=== PATIENT | female | born 1965 | race Hispanic/Latino ===

== ENCOUNTER 2017-08-16 19:17 | Inpatient (IN) | payer OTHER ==
[2017-08-16 20:52] LABS: Bilirubin Negative (Negative); Blood, Urine Small (Negative); Glucose, Urine (Dipstick) 100 mg/dL (Negative); Ketone, Urine Negative (Negative); Nitrite Positive (Negative); Protein, Urine (Dipstick) 30 mg/dL (Neg-Trace); Urobilinogen 0.2 mg/dL (0.2-1.0)
[2017-08-16 20:54] LABS: Bacteria/HPF Rare-Few HPF (None Seen); Hyaline Casts/LPF 0-3 HYALINE CAST LPF (0-3 Hyaline); Squamous Epithelial 0-3 HPF (0-3)
[2017-08-16 21:11] LABS: Anion Gap 12 mmol/L (-14-95); T. Carbon Dioxide 21.9 mmol/L (1.0-85.0); pH (Venous) 7.392 (7.35-7.45); vO2 Saturation-calc 93.7 % (0.0-100.0)
[2017-08-16 21:29] LABS: PTT 35.8 SEC (22.9-36.1); Prothrombin Time 13.6 SEC (12.0-14.7)
[2017-08-16 21:36] LABS: Lactic Acid - Sepsis 1.8 mmol/L (0.5-2.2)
[2017-08-16 21:45] LABS: Troponin I Less than 0.010 ng/mL (< 0.028)
[2017-08-16] MEDS ORDERED: Nitroglycerin 0.4 MG TAB (25 Tab Bottle) SL PRN (21:56)
[2017-08-16] MEDS ORDERED: cloNIDine 0.1 MG TAB PO PRN (21:56)
[2017-08-16] MEDS ORDERED: traMADol HCl 50 MG TAB PO PRN (21:56)
[2017-08-16] MEDS ORDERED: Ondansetron HCl/PF 4 MG/2 ML Vial IVP PRN (21:56)
[2017-08-16] MEDS ORDERED: hydrALAZINE 20 MG/ML VIAL SLOW IVP PRN (21:56)
[2017-08-16] MEDS ORDERED: Senokot 8.6 MG TAB PO PRN ×2 (21:56)
[2017-08-16] MEDS ORDERED: Bisacodyl 5 MG TAB PO PRN ×2 (21:56)
[2017-08-16] MEDS ORDERED: Benzonatate 100 MG CAP PO PRN (21:56)
[2017-08-16] MEDS ORDERED: Loratadine 10 MG TAB PO PRN (21:56)
[2017-08-16] MEDS ORDERED: Mag-Al 1200 mg/1200 mg/30 ML UDCUP PO PRN (21:56)
[2017-08-16] MEDS ORDERED: Acetaminophen 325 MG TAB PO PRN (21:56)
[2017-08-16] MEDS ORDERED: Calcium Carbonate 500 MG ChewTAB PO PRN (21:56)
[2017-08-16] MEDS ORDERED: HumaLOG 300 UNITS/3 ML VIAL SC PRN (21:56)
[2017-08-16] MEDS ORDERED: Dextrose 5% in Water 1,000 ML IV PRN (21:56)
[2017-08-16] MEDS ORDERED: Diabetic Tussin 200 MG/10 ML UDCUP PO PRN (21:56)
[2017-08-16] MEDS ORDERED: Dextrose 50% Abboject 50 ML SYRINGE SLOW IVP PRN (21:56)
[2017-08-17] MEDS: Lorazepam 1 MG TAB PO PRN ×2 (00:22→20:42)
[2017-08-17] MEDS: HYDROcodone/Acetaminophen 5/325 mg Tablet PO PRN ×3 (00:25→20:42)
[2017-08-17] MEDS: Sodium Chloride 0.9% 1,000 ML IV SCH ×2 (00:27→16:21)
[2017-08-17 00:45] LABS: Amphetamine Not Detected (NotDetected); Methadone Not Detected (NotDetected); Methamphetamine Not Detected (NotDetected)
[2017-08-17] MEDS ORDERED: Furosemide 20 MG TAB PO PRN (01:41)
[2017-08-17] MEDS ORDERED: PROVENTIL INHALER 6.7 G (200 INHALATIONS) INH PRN (01:41)
[2017-08-17] MEDS ORDERED: Potassium Chloride 40 MEQ in Sodium Chloride 0.9% 250 ML 250 ML IVPB SCH (02:30)
--- NOTE | 2017-08-17 02:56 | HP ---
DATE OF ADMISISON: 08/16/2017 PRIMARY CARE PHYSICIAN: Out of town, the patient is visiting. CHIEF COMPLAINT: Cough, fever, weakness and shortness of breath. HISTORY OF PRESENT ILLNESS: Ms. Avendano is a 52-year-old female with past medical history of diabetes mellitus, hyperlipidemia, pancreatitis, chronic kidney disease, GERD and history of renal stones as well as congestive heart failure per the patient who presented to the ER with the above-mentioned c omplaints. History is mainly obtained by the patient herself and the electronic medical records hav e been reviewed. Ms. Avendano is visiting her mother here in town who has been sick with lots of cough and shortness of breath, possible pneumonia and has been feeling ill herself for the last few days. She presented to the ER mainly for complaints of cough, chest tightness, wheezing, and dull achy pain and generalize d weakness and malaise. She is also reported subjective fevers associated with chills. She also re ports sore throat and nausea. She has taken nebulizers and [id number] Tylenol, but has not castro d any improvement in her symptoms. She presented to the ER initially [place] and underwent a C T scan of the chest, which showed bilateral pneumonia. She did have leukocytosis with left shift as well as fever upon presentation up to 100.2 degrees. She received nebulizers and Zosyn in the [facility] Room and was transferred to our facility. Here, she received vancomycin along with Levaquin i n addition and is now being admitted for pneumonia. Her lactic acid was also elevated and she was h ypoxic on presentation requiring up to 4 liters of oxygen initially. She reports chronic incontinen ce and wears briefs and her urinalysis was also suggestive of pyuria. PAST MEDICAL HISTORY: 1. Gastroesophageal reflux disease. 2. Pancreatitis. 3. Dyslipidemia. 4. Hypertension. 5. Recurrent renal stone with history of bilateral nephrostomy tubes. 6. Diabetes mellitus. PAST SURGICAL HISTORY: 1. Multiple kidney surgeries due to kidney stones. 2. Cholecystectomy. 3. Hysterectomy. 4. Nephrectomy. 5. Tonsillectomy. PSYCHIATRIC HISTORY: Anxiety and depression. SOCIAL HISTORY: She drinks socially and smokes marijuana occasionally. She smokes few cigarettes a day. Denies any other drug abuse. FAMILY HISTORY: Significant for coronary artery disease and hypertension in her father. Also, hist ory of diabetes in her father. Her family history also include cirrhosis as well as kidney stones. ALLERGIES: Include METFORMIN, which causes anaphylaxis, TORADOL causes a hives, TRAMADOL causes hiv es. CURRENT MEDICATIONS: Include Lasix 20 mg as needed on a daily basis, albuterol inhaler as needed, i nsulin 30 units in the morning and 40 units in the evening Novolin, glimepiride 5 mg p.o. b.i.d., A dvair Diskus 250/50 one inhalation b.i.d., amitriptyline 75 mg at bedtime, hydroxyzine 25 mg p.o. b. i.d., Haldol 6 mg 4 times a day, sertraline 200 mg daily, lovastatin 40 mg daily, metoprolol tartrat e 100 mg p.o. b.i.d., lisinopril/hydrochlorothiazide 1 tablet p.o. daily , Dulcolax 5 mg p.o. b .i.d. REVIEW OF SYSTEMS: The following complete review of systems was negative, unless otherwise mentione d in the HPI or below: Constitutional: Weight loss or gain, ability to conduct usual activities. Skin: Rash, itching. Eyes: Double vision, pain. ENT/Mouth: Nose bleeding, neck stiffness, pain, tenderness. Cardiovascular: Palpitations, dyspnea on exertion, orthopnea. Respiratory: Shortness of breath, wheezing, cough, hemoptysis, fever or night sweats. Gastrointestinal: Poor appetite, abdominal pain, heartburn, nausea, vomiting, constipation, or diar maribel. Genitourinary: Urgency, frequency, dysuria, nocturia. Musculoskeletal: Pain, swelling. Neurologic/Psychiatric: Anxiety, depression. Allergy/Immunologic: Skin rash, bleeding tendency. LABORATORY DATA AND IMAGING: Her CBC shows WBCs at 14.6 with 76% neutrophils, hemoglobin is 14.4, p latelet count of 213. Her coagulation studies are within normal limits. VBG shows pH of 7.3, pCO2 34, pO2 69. Serum chemistry shows sodium of 134, potassium 3.1, bicarbonate 17, blood sugar 254. L iver enzymes unremarkable. Troponin less than 0.010. CK-MB 0.5. BNP is 11, albumin 3.9. Urinalys is shows glucosuria, positive nitrite, leukocyte esterase, WBCs and urine drug screen is positive fo r cannabinoids and tricyclics. Chest x-ray by my review has no evidence of pulmonary vascular conge stion and pneumonia is not very much evident on the chest x-ray. CT scan of the chest reveals bilat eral ground glass opacities consistent with pneumonia and fatty changes of the liver. PHYSICAL EXAMINATION: VITAL SIGNS: Most recently includes temperature 98.9, pulse of 86, respirations 16, saturating 91% on 2 liters oxygen, blood pressure 144/63. GENERAL: She appears ill, tired, otherwise in no acute distress, awake, alert, oriented x3. She is able to provide much of the history. She has cough during interview. She appears uncomfortable. HEENT: Mucous membranes slightly dry. No oropharyngeal exudate or erythema. Head is normocephalic , atraumatic. Pupils are equal, reactive to light and accommodation. Extraocular movements intact. NECK: Supple without any lymphadenopathy, JVD or bruit. CHEST: Reveal bilateral mild wheezes as well as rhonchi and decreased breath sounds at bases. HEART: Rate and rhythm is regular without any murmur, rubs or gallops. ABDOMEN: Obese, soft, nontender, nondistended, positive bowel sounds. EXTREMITIES: Free of any cyanosis, clubbing, or edema. NEUROLOGIC: Nonfocal. SKIN: Free of any rashes or bruises. Feels warm and dry to touch. PSYCHIATRIC: Awake, alert, oriented x3. Affect flat. IMPRESSION AND PLAN: 1. Community-acquired pneumonia. The patient will be treated with IV antibiotic. We will continue with levofloxacin high dose at this time and also test her for influenza. Supplemental oxygen, neb ulizer, Mucinex and incentive spirometry will also be ordered. Continue symptomatic and supportive care at this time. The patient seems to be having early sepsis, because of the pneumonia. 2. Sepsis secondary to pneumonia. Continue with IV antibiotics, IV fluids at this time. 3. Urinary tract infection. Urine culture will be sent. Continue antibiotics as above. The patie nt is prone to get frequent urinary tract infection due to chronic incontinence. 4. Hypokalemia, we will replace it and recheck. 5. Hypertension. We will resume her home medications of metoprolol as well as lisinopril and hydro chlorothiazide. 6. Dyslipidemia. We will continue with her statin at this time. 7. Diabetes mellitus type 2. We will start her insulin sliding scale with frequent Accu-Cheks. 8. History of anxiety and depression. The patient takes very high dose of Haldol. At this time, w e will hold it and monitor her symptoms and use as needed basis antianxiety medications, mainly nino odiazepines. Continue with her sertraline for now. 9. Deep venous thrombosis and gastrointestinal prophylaxis. 10. Code status: Full code. Discussed with the patient. DISPOSITION: The patient is currently being admitted for early sepsis due to pneumonia and possible urinary tract infection. Further management will depend upon her clinical course. Estimated lengt h of stay is at least 2-3 midnight at this time.
[2017-08-17 05:54] LABS: Anion Gap 13 mmol/L (10-20); BUN (Urea Nitrogen) 9 mg/dL (9.8-20.1); Calc. Creatinine Clearance 191 mL/min (70-130); Calcium 8.3 mg/dL (7.8-10.44); Carbon Dioxide 19 mmol/L (22-29); Chloride 106 mmol/L (98-107); Estimated GFR-MDRD 89
[2017-08-17 06:14] LABS: #Eosinphils 0.1 thou/uL (0.0-0.7); #Lymphocytes 1.5 thou/uL (1.20-3.40); #Monocytes 0.6 thou/uL (0.11-0.59); #Neutrophils 5.1 thou/uL (1.40-6.50); %Basophils 0.4 % (0.0-1.0); %Eosinophils 0.7 % (0.0-10.0); %Lymphocytes 21.2 % (21.0-51.0); %Monocytes 7.7 % (0.0-10.0); Hematocrit 39.5 % (36.0-47.0); Mean Platelet Volume 6.9 fL (7.4-10.4); Red Blood Cell (RBC) Count 4.23 mill/uL (4.20-5.40); White Blood Cell (WBC) Count 7.2 thou/uL (4.8-10.8)
[2017-08-17] MEDS: Mometasone/Formoterol 120 PUFF INHALER INH SCH ×2 (07:15→18:57)
[2017-08-17] MEDS ORDERED: Glimepiride 1 MG TAB PO SCH ×2 (08:00)
[2017-08-17] MEDS: Famotidine 20 MG TAB PO SCH ×2 (08:57→20:32)
[2017-08-17] MEDS: guaiFENesin/DM ER PO SCH ×2 (08:57→20:32)
[2017-08-17] MEDS: Lisinopril/Hydrochlorothiazide 20/25 mg Tablet PO SCH (08:58)
[2017-08-17] MEDS: glyBURIDE 5 MG TAB PO SCH ×2 (08:58→16:19)
[2017-08-17] MEDS: Bisacodyl 5 MG TAB PO SCH ×2 (08:59→20:37)
[2017-08-17] MEDS: Metoprolol Tartrate 100 MG TAB PO SCH ×2 (08:59→20:34)
[2017-08-17] MEDS: Heparin 5,000 UNITS/ML VIAL SC SCH ×2 (08:59→20:34)
[2017-08-17] MEDS: HumaLOG 300 UNITS/3 ML VIAL SC PRN ×3 (09:00→16:36)
--- NOTE | 2017-08-17 12:42 | PDOC.PN ---
- Subjective Encounter Start Date: 08/17/17 Encounter Start Time: 09:20 Pt seen for followup re: pneumonia. denies chest pain. Reports cough. reports generalized weakness. No nausea or vomiting. - Objective MAR Reviewed: Yes Vital Signs & Weight: Vital Signs (12 hours) Temp Pulse Resp BP BP Pulse Ox 08/17/17 12:13 95 08/17/17 12:08 66 16 08/17/17 12:05 98.2 F 80 20 119/62 94 L 08/17/17 08:58 84 136/85 08/17/17 08:54 98.3 F 84 22 H 136/85 92 L 08/17/17 08:50 98.3 F 84 20 92 L 08/17/17 07:19 98 08/17/17 07:15 84 16 08/17/17 04:00 97.9 F 78 18 142/78 H 91 L Weight Weight 279 lb Result Diagrams: 08/17/17 05:55 08/17/17 04:52 Additional Labs: Accuchecks 08/17/17 06:08 POC Glucose 218 H EKG Reviewed by me: Yes (Tele: NSR) Phys Exam - Physical Examination Morbid obesity HEENT: moist MMs, sclera anicteric, oral pharynx no lesions Neck: supple Respiratory: no wheezing, no rales Bibasal crackles+ Cardiovascular: RRR, no rub Gastrointestinal: soft, non-tender, positive bowel sounds distended Musculoskeletal: pulses present Neurological: moves all 4 limbs Lymphatic: no nodes Psychiatric: normal affect, A&O x 3 Skin: no rash, normal turgor, cap refill <2 seconds Dx/Plan (1) Pneumonia Code(s): J18.9 - PNEUMONIA, UNSPECIFIED ORGANISM Status: Acute (2) Hyponatremia Code(s): E87.1 - HYPO-OSMOLALITY AND HYPONATREMIA Status: Acute (3) UTI (urinary tract infection) Status: Acute (4) DM2 (diabetes mellitus, type 2) Status: Chronic (5) Dyslipidemia Code(s): E78.5 - HYPERLIPIDEMIA, UNSPECIFIED Status: Chronic (6) HTN (hypertension) Code(s): I10 - ESSENTIAL (PRIMARY) HYPERTENSION Status: Chronic (7) Anxiety and depression Code(s): F41.8 - OTHER SPECIFIED ANXIETY DISORDERS Status: Chronic (8) Tobacco abuse Code(s): Z72.0 - TOBACCO USE Status: Chronic (9) Cannabis abuse Code(s): F12.10 - CANNABIS ABUSE, UNCOMPLICATED Status: Chronic (10) Hypokalemia Code(s): E87.6 - HYPOKALEMIA Status: Resolved - Plan continue antibiotics, DVT proph w/heparin * . Urine culture growing gram negative rods, change antibiotic to ceftriaxone and azithromycin until identification and sensitivities available. Continue accuchecks, insulin sliding scale. Monitor vital signs, titrate antihypertensives as needed. Counseled pt re: cessation of tobacco and cannabis use. Start nicotine replacement therapy. Hyponatremia mild, recheck. Review of Systems - Review of Systems Constitutional: Weakness. negative: Fever, Chills, Sweats, Malaise Respiratory: Cough, SOB with Excertion, Sputum. negative: Dry, Shortness of Breath, Hemoptysis, Pleuritic Pain, Wheezing Cardiovascular: negative: Chest Pain, Palpitations, Orthopnea, Paroxysmal Noc. Dyspnea, Edema, Light Headedness Gastrointestinal: negative: Nausea, Vomiting, Abdominal Pain, Diarrhea, Constipation, Melena, Hematochezia Genitourinary: negative: Dysuria, Frequency, Incontinence, Hematuria, Retention - Medications/Allergies Allergies/Adverse Reactions: Allergies Allergy/AdvReac Type Severity Reaction Status Date / Time ketorolac [From Toradol] Allergy Verified 08/16/17 22:30 metformin Allergy Anaphylaxis Verified 08/16/17 22:30 tramadol Allergy Hives Verified 08/16/17 22:30 Medications: Current Medications Acetaminophen (Tylenol) 650 mg PO Q4H PRN PRN Reason: Headache/Fever or Pain Hydrocodone Bitart/Acetaminophen ([place] 5/325) 1 tab PO Q4H PRN PRN Reason: Moderate Pain (4-6) Last Admin: 08/17/17 00:25 Dose: 1 tab Al Hydroxide/Mg Hydroxide (Maalox) 30 ml PO Q6H PRN PRN Reason: Heartburn or Indigestion Albuterol Sulfate (Proventil Hfa) 1 puff INH Q4H PRN PRN Reason: SOB &/or Wheezing Albuterol/Ipratropium (Duoneb) 3 ml NEB [id number] PRN PRN Reason: SOB &/or Wheezing Last Admin: 08/17/17 12:08 Dose: 3 ml Amitriptyline HCl (Elavil) 75 mg PO HS [facility] Atorvastatin Calcium (Lipitor) 10 mg PO HS [facility] Benzonatate (Tessalon) 100 mg PO Q4H PRN PRN Reason: Cough Bisacodyl (Dulcolax) 10 mg PO DAILYPRN PRN PRN Reason: Constipation Bisacodyl (Dulcolax) 5 mg PO BID [facility] Last Admin: 08/17/17 08:59 Dose: 5 mg Calcium Carbonate (Tums) 1,000 mg PO Q4H PRN PRN Reason: Heartburn or Indigestion Clonidine HCl (Catapres) 0.1 mg PO Q4H PRN PRN Reason: Systolic BP > 160 Dextrose/Water (Dextrose 50%) 25 gm SLOW IVP PRN PRN PRN Reason: Hypoglycemia Famotidine (Pepcid) 20 mg PO BID [facility] Last Admin: 08/17/17 08:57 Dose: 20 mg Furosemide (Lasix) 20 mg PO DAILYPRN PRN PRN Reason: swelling Glucagon (Glucagon) 1 mg IM PRN PRN PRN Reason: Hypoglycemia Glyburide (Diabeta) 5 mg PO BID[facility] Last Admin: 08/17/17 08:58 Dose: 5 mg Guaifenesin (Robitussin Sf) 200 mg PO Q4H PRN PRN Reason: Cough Guaifenesin/Dextromethorphan (Mucinex Dm) 1 tab PO Q12HR [facility] Last Admin: 08/17/17 08:57 Dose: 1 tab Lisinopril/HCTZ (Prinizide 20-25) 1 tab PO DAILY [facility] Last Admin: 08/17/17 08:58 Dose: 1 tab Heparin Sodium (Porcine) (Heparin) 5,000 units SC BID [facility] Last Admin: 08/17/17 08:59 Dose: 5,000 units Hydralazine HCl (Apresoline) 10 mg SLOW IVP Q4H PRN PRN Reason: Systolic BP > 170 Dextrose/Water (D5w) 1,000 mls @ 0 mls/hr IV .Q0M PRN; As Directed PRN Reason: Hypoglycemia Levofloxacin 750 mg/ Device 150 mls @ 100 mls/hr IVPB Q24HR [facility] Sodium Chloride (Normal Saline 0.9%) 1,000 mls @ 75 mls/hr IV .[id number] [facility] Last Admin: 08/17/17 00:27 Dose: 1,000 mls Insulin Human Lispro (Humalog) 0 units SC .MODERATE SLIDING SC PRN PRN Reason: Moderate Correctional Scale Last Admin: 08/17/17 09:00 Dose: 4 unit Insulin Human Lispro (Humalog) 0 units SC .BEDTIME SLIDING SC PRN PRN Reason: Bedtime Correctional Scale Loratadine (Claritin) 10 mg PO DAILYPRN PRN PRN Reason: Sinus Symptoms Lorazepam (Ativan) 1 mg PO Q4H PRN PRN Reason: Anxiety/Agitation Last Admin: 08/17/17 00:22 Dose: 1 mg Metoprolol Tartrate (Lopressor) 100 mg PO BID [facility] Last Admin: 08/17/17 08:59 Dose: 100 mg Mometasone Furoate/Formoterol Fumar (Dulera 200 Mcg/5 Mcg Inhaler) 2 puff INH BID-RT [facility] Last Admin: 08/17/17 07:15 Dose: 2 puff Nitroglycerin (Nitrostat) 0.4 mg SL Q5MIN PRN PRN Reason: Chest Pain Ondansetron HCl (Zofran) 4 mg IVP Q6H PRN PRN Reason: Nausea/Vomiting Senna (Senokot) 2 tab PO HSPRN PRN PRN Reason: Constipation Sertraline HCl (Zoloft) 200 mg PO DAILY [facility] Last Admin: 08/17/17 09:04 Dose: 200 mg Sodium Chloride (Flush - Normal Saline) 10 ml IVF Q12HR [facility] Last Admin: 08/17/17 08:59 Dose: Not Given Sodium Chloride (Flush - Normal Saline) 10 ml IVF PRN PRN PRN Reason: Saline Flush
[2017-08-17] MEDS: Nicotine 14 MG PATCH TD SCH (14:26)
[2017-08-17] MEDS ORDERED: cefTRIAXone\\ROCEPHIN 1 GM, IV Admixture Fee-Chemo 1 UNITS in Sodium Chloride 0.9% 100 ML IVPB SCH (15:00)
[2017-08-17] MEDS: Azithromycin 500 MG in Sodium Chloride 0.9% 250 ML 250 ML IVPB SCH (16:07)
[2017-08-17] MEDS: Amitriptyline HCl 25 MG TAB PO SCH (20:32)
[2017-08-17] MEDS: Atorvastatin Calcium 10 MG TAB PO SCH (20:32)
[2017-08-18] MEDS: Sodium Chloride 0.9% 1,000 ML IV SCH ×2 (06:36→16:52)
[2017-08-18] MEDS: Mometasone/Formoterol 120 PUFF INHALER INH SCH ×2 (07:37→18:40)
[2017-08-18] MEDS: NPH, Human Insulin Isophane 300 UNIT/3 ML VIAL SC SCH ×2 (08:36→16:54)
[2017-08-18] MEDS: Heparin 5,000 UNITS/ML VIAL SC SCH ×2 (08:37→20:25)
[2017-08-18] MEDS: Lisinopril/Hydrochlorothiazide 20/25 mg Tablet PO SCH (08:39)
[2017-08-18] MEDS: guaiFENesin/DM ER PO SCH ×2 (08:39→20:24)
[2017-08-18] MEDS: Famotidine 20 MG TAB PO SCH ×2 (08:39→20:24)
[2017-08-18] MEDS: Haloperidol 1 MG TAB PO SCH ×4 (08:39→20:25)
[2017-08-18] MEDS: glyBURIDE 5 MG TAB PO SCH ×4 (08:39→16:30)
[2017-08-18] MEDS: Haloperidol 5 MG TAB PO SCH ×4 (08:40→20:25)
[2017-08-18] MEDS: Bisacodyl 5 MG TAB PO SCH ×2 (08:41→20:24)
[2017-08-18] MEDS: Metoprolol Tartrate 100 MG TAB PO SCH ×2 (08:41→20:25)
[2017-08-18] MEDS: Meropenem 1 GM, Admixture Fee 1 EACH in Sodium Chloride 0.9% 100 ML IVPB SCH ×3 (09:04→23:02)
[2017-08-18] MEDS: HYDROcodone/Acetaminophen 5/325 mg Tablet PO PRN ×2 (09:34→17:44)
--- NOTE | 2017-08-18 10:53 | PDOC.PN ---
- Subjective Encounter Start Date: 08/18/17 Encounter Start Time: 08:00 Pt seen for followup re: uti. Says she feels better. - Objective MAR Reviewed: Yes Vital Signs & Weight: Vital Signs (12 hours) Temp Pulse Resp BP Pulse Ox 08/18/17 08:39 86 08/18/17 07:50 96.8 F L 86 20 169/75 H 3 L 08/18/17 07:37 87 16 08/18/17 07:27 98 08/18/17 07:24 78 16 08/18/17 04:00 98.4 F 72 16 142/80 H 91 L Weight Weight 275 lb I&O: 08/17/17 08/18/17 08/19/17 06:59 06:59 06:59 Intake Total 2975 Output Total 1700 Balance 1275 Result Diagrams: 08/17/17 05:55 08/17/17 04:52 Additional Labs: Accuchecks 08/17/17 08/17/17 08/17/17 20:39 16:36 11:38 POC Glucose 217 H 166 H 236 H EKG Reviewed by me: Yes (Tele: NSR) Phys Exam - Physical Examination Morbid obesity HEENT: moist MMs, sclera anicteric, oral pharynx no lesions Neck: supple Respiratory: no wheezing, no rales, no rhonchi, clear to auscultation bilateral Cardiovascular: RRR, no rub Gastrointestinal: soft, non-tender, positive bowel sounds distended Musculoskeletal: pulses present Neurological: non-focal, moves all 4 limbs Lymphatic: no nodes Psychiatric: normal affect, A&O x 3 Skin: no rash, normal turgor, cap refill <2 seconds Dx/Plan (1) UTI (urinary tract infection) Status: Acute (2) Pneumonia Code(s): J18.9 - PNEUMONIA, UNSPECIFIED ORGANISM Status: Acute (3) Hyponatremia Code(s): E87.1 - HYPO-OSMOLALITY AND HYPONATREMIA Status: Acute (4) DM2 (diabetes mellitus, type 2) Status: Chronic (5) Dyslipidemia Code(s): E78.5 - HYPERLIPIDEMIA, UNSPECIFIED Status: Chronic (6) HTN (hypertension) Code(s): I10 - ESSENTIAL (PRIMARY) HYPERTENSION Status: Chronic (7) Anxiety and depression Code(s): F41.8 - OTHER SPECIFIED ANXIETY DISORDERS Status: Chronic (8) Tobacco abuse Code(s): Z72.0 - TOBACCO USE Status: Chronic (9) Cannabis abuse Code(s): F12.10 - CANNABIS ABUSE, UNCOMPLICATED Status: Chronic (10) Hypokalemia Code(s): E87.6 - HYPOKALEMIA Status: Resolved - Plan * . UTI with E. coli resistant to multiple antibiotics, change to IV meropenem, step down to Macrobid at the time of discharge. Blood cultures (done at another ER) show no growth yet. Continue accuchecks, insulin sliding scale. Check labs in AM. Review of Systems - Review of Systems Constitutional: negative: Fever, Chills, Sweats, Weakness, Malaise Respiratory: Cough, Sputum. negative: Dry, Shortness of Breath, Hemoptysis, SOB with Excertion, Pleuritic Pain, Wheezing Cardiovascular: negative: Chest Pain, Palpitations, Orthopnea, Paroxysmal Noc. Dyspnea, Edema, Light Headedness Gastrointestinal: negative: Nausea, Vomiting, Abdominal Pain, Diarrhea, Constipation, Melena, Hematochezia Genitourinary: negative: Dysuria, Frequency, Incontinence, Hematuria, Retention - Medications/Allergies Allergies/Adverse Reactions: Allergies Allergy/AdvReac Type Severity Reaction Status Date / Time ketorolac [From Toradol] Allergy Verified 08/16/17 22:30 metformin Allergy Anaphylaxis Verified 08/16/17 22:30 tramadol Allergy Hives Verified 08/16/17 22:30 Medications: Current Medications Acetaminophen (Tylenol) 650 mg PO Q4H PRN PRN Reason: Headache/Fever or Pain Hydrocodone Bitart/Acetaminophen ([place] 5/325) 1 tab PO Q4H PRN PRN Reason: Moderate Pain (4-6) Last Admin: 08/18/17 09:34 Dose: 1 tab Al Hydroxide/Mg Hydroxide (Maalox) 30 ml PO Q6H PRN PRN Reason: Heartburn or Indigestion Albuterol Sulfate (Proventil Hfa) 1 puff INH Q4H PRN PRN Reason: SOB &/or Wheezing Albuterol/Ipratropium (Duoneb) 3 ml NEB [id number] PRN PRN Reason: SOB &/or Wheezing Last Admin: 08/18/17 07:24 Dose: 3 ml Amitriptyline HCl (Elavil) 75 mg PO HS [facility] Last Admin: 08/17/17 20:32 Dose: 75 mg Atorvastatin Calcium (Lipitor) 10 mg PO HS [facility] Last Admin: 08/17/17 20:32 Dose: 10 mg Benzonatate (Tessalon) 100 mg PO Q4H PRN PRN Reason: Cough Bisacodyl (Dulcolax) 10 mg PO DAILYPRN PRN PRN Reason: Constipation Bisacodyl (Dulcolax) 5 mg PO BID [facility] Last Admin: 08/18/17 08:41 Dose: 5 mg Calcium Carbonate (Tums) 1,000 mg PO Q4H PRN PRN Reason: Heartburn or Indigestion Clonidine HCl (Catapres) 0.1 mg PO Q4H PRN PRN Reason: Systolic BP > 160 Dextrose/Water (Dextrose 50%) 25 gm SLOW IVP PRN PRN PRN Reason: Hypoglycemia Famotidine (Pepcid) 20 mg PO BID [facility] Last Admin: 08/18/17 08:39 Dose: 20 mg Furosemide (Lasix) 20 mg PO DAILYPRN PRN PRN Reason: swelling Glucagon (Glucagon) 1 mg IM PRN PRN PRN Reason: Hypoglycemia Glyburide (Diabeta) 5 mg PO BID-[facility] Last Admin: 08/18/17 08:39 Dose: 5 mg Glyburide (Diabeta) 5 mg PO BID-[facility] Last Admin: 08/18/17 08:40 Dose: 5 mg Guaifenesin (Robitussin Sf) 200 mg PO Q4H PRN PRN Reason: Cough Guaifenesin/Dextromethorphan (Mucinex Dm) 1 tab PO Q12HR [facility] Last Admin: 08/18/17 08:39 Dose: 1 tab Lisinopril/HCTZ (Prinizide 20-25) 1 tab PO DAILY [facility] Last Admin: 08/18/17 08:39 Dose: 1 tab Haloperidol (Haldol) 5 mg PO QID [facility] Last Admin: 08/18/17 08:40 Dose: 5 mg Haloperidol (Haldol) 1 mg PO QID [facility] Last Admin: 08/18/17 08:39 Dose: 1 mg Heparin Sodium (Porcine) (Heparin) 5,000 units SC BID [facility] Last Admin: 08/18/17 08:37 Dose: 5,000 units Hydralazine HCl (Apresoline) 10 mg SLOW IVP Q4H PRN PRN Reason: Systolic BP > 170 Dextrose/Water (D5w) 1,000 mls @ 0 mls/hr IV .Q0M PRN; As Directed PRN Reason: Hypoglycemia Sodium Chloride (Normal Saline 0.9%) 1,000 mls @ 75 mls/hr IV .[id number] [facility] Last Admin: 08/18/17 06:36 Dose: 1,000 mls Azithromycin 500 mg/ Sodium (Chloride) 250 mls @ 250 mls/hr IVPB Q24HR [facility] Last Admin: 08/17/17 16:07 Dose: 250 mls Meropenem 1 gm/ Miscellaneous Medication 1 each/ Sodium Chloride 100 mls @ 200 mls/hr IVPB 0800,1600,2359 [facility] Last Admin: 08/18/17 09:04 Dose: 100 mls Insulin Human Lispro (Humalog) 0 units SC .MODERATE SLIDING SC PRN PRN Reason: Moderate Correctional Scale Last Admin: 08/17/17 16:36 Dose: 2 unit Insulin Human Lispro (Humalog) 0 units SC .BEDTIME SLIDING SC PRN PRN Reason: Bedtime Correctional Scale Last Admin: 08/17/17 20:57 Dose: 2 unit Insulin Human NPH (Humulin N) 30 unit SC 1630 [facility] Insulin Human NPH (Humulin N) 40 unit SC DAILY-AC [facility] Last Admin: 08/18/17 08:36 Dose: 40 unit Loratadine (Claritin) 10 mg PO DAILYPRN PRN PRN Reason: Sinus Symptoms Lorazepam (Ativan) 1 mg PO Q4H PRN PRN Reason: Anxiety/Agitation Last Admin: 08/17/17 20:42 Dose: 1 mg Metoprolol Tartrate (Lopressor) 100 mg PO BID [facility] Last Admin: 08/18/17 08:41 Dose: 100 mg Mometasone Furoate/Formoterol Fumar (Dulera 200 Mcg/5 Mcg Inhaler) 2 puff INH BID-RT [facility] Last Admin: 08/18/17 07:37 Dose: 2 puff Nicotine (Nicoderm Patch) 14 mg TD Q24HR [facility] Last Admin: 08/17/17 14:26 Dose: 14 mg Nitroglycerin (Nitrostat) 0.4 mg SL Q5MIN PRN PRN Reason: Chest Pain Ondansetron HCl (Zofran) 4 mg IVP Q6H PRN PRN Reason: Nausea/Vomiting Senna (Senokot) 2 tab PO HSPRN PRN PRN Reason: Constipation Sertraline HCl (Zoloft) 200 mg PO DAILY [facility] Last Admin: 08/18/17 08:39 Dose: 200 mg Sodium Chloride (Flush - Normal Saline) 10 ml IVF Q12HR [facility] Last Admin: 08/18/17 08:41 Dose: Not Given Sodium Chloride (Flush - Normal Saline) 10 ml IVF PRN PRN PRN Reason: Saline Flush
[2017-08-18] MEDS: Nicotine 14 MG PATCH TD SCH (16:31)
[2017-08-18] MEDS: HumaLOG 300 UNITS/3 ML VIAL SC PRN (16:43)
[2017-08-18] MEDS: Azithromycin 500 MG in Sodium Chloride 0.9% 250 ML 250 ML IVPB SCH (16:53)
[2017-08-18] MEDS ORDERED: Sodium Chloride 0.9% 10 ML ONE (18:15)
[2017-08-18] MEDS: Atorvastatin Calcium 10 MG TAB PO SCH (20:25)
[2017-08-18] MEDS: Amitriptyline HCl 25 MG TAB PO SCH (20:25)
[2017-08-19] MEDS: Sodium Chloride 0.9% 1,000 ML IV SCH ×2 (03:06→17:18)
[2017-08-19] MEDS: HYDROcodone/Acetaminophen 5/325 mg Tablet PO PRN ×2 (05:11→17:17)
[2017-08-19 05:16] LABS: #Eosinphils 0.1 thou/uL (0.0-0.7); #Lymphocytes 2.6 thou/uL (1.20-3.40); #Monocytes 0.5 thou/uL (0.11-0.59); #Neutrophils 4.7 thou/uL (1.40-6.50); %Basophils 0.1 % (0.0-1.0); %Eosinophils 0.8 % (0.0-10.0); %Lymphocytes 33.3 % (21.0-51.0); %Monocytes 6.5 % (0.0-10.0); Mean Platelet Volume 7.6 fL (7.4-10.4); Red Blood Cell (RBC) Count 3.97 mill/uL (4.20-5.40); White Blood Cell (WBC) Count 7.9 thou/uL (4.8-10.8)
[2017-08-19 05:29] VITALS: BMI 51.2
[2017-08-19 05:42] LABS: Anion Gap 9 mmol/L (10-20); BUN (Urea Nitrogen) 9 mg/dL (9.8-20.1); Calc. Creatinine Clearance 206 mL/min (70-130); Calcium 8.9 mg/dL (7.8-10.44); Carbon Dioxide 25 mmol/L (22-29); Chloride 105 mmol/L (98-107); Estimated GFR-MDRD Greater than 90
[2017-08-19] MEDS: Mometasone/Formoterol 120 PUFF INHALER INH SCH ×2 (06:48→19:18)
[2017-08-19] MEDS: NPH, Human Insulin Isophane 300 UNIT/3 ML VIAL SC SCH ×2 (09:45→16:55)
[2017-08-19] MEDS: glyBURIDE 5 MG TAB PO SCH ×3 (09:46→17:32)
[2017-08-19] MEDS: Lisinopril/Hydrochlorothiazide 20/25 mg Tablet PO SCH (09:49)
[2017-08-19] MEDS: guaiFENesin/DM ER PO SCH ×2 (09:49→20:53)
[2017-08-19] MEDS: Haloperidol 1 MG TAB PO SCH ×4 (09:50→20:54)
[2017-08-19] MEDS: Meropenem 1 GM, Admixture Fee 1 EACH in Sodium Chloride 0.9% 100 ML IVPB SCH ×3 (09:50→21:20)
[2017-08-19] MEDS: Metoprolol Tartrate 100 MG TAB PO SCH ×2 (09:50→20:54)
[2017-08-19] MEDS: Bisacodyl 5 MG TAB PO SCH ×2 (09:50→20:53)
[2017-08-19] MEDS: Haloperidol 5 MG TAB PO SCH ×4 (09:50→20:54)
[2017-08-19] MEDS: Famotidine 20 MG TAB PO SCH ×2 (09:51→20:53)
[2017-08-19] MEDS: Heparin 5,000 UNITS/ML VIAL SC SCH ×2 (09:52→20:53)
[2017-08-19] MEDS: HumaLOG 300 UNITS/3 ML VIAL SC PRN (14:07)
[2017-08-19] MEDS: Nicotine 14 MG PATCH TD SCH (15:21)
[2017-08-19] MEDS: Azithromycin 500 MG in Sodium Chloride 0.9% 250 ML 250 ML IVPB SCH (15:21)
--- NOTE | 2017-08-19 15:34 | PDOC.PN ---
- Subjective Encounter Start Date: 08/19/17 Encounter Start Time: 08:00 Pt seen for followup re: UTI. Feels better, no nausea, vomiting or diarrhea. - Objective MAR Reviewed: Yes Vital Signs & Weight: Vital Signs (12 hours) Temp Pulse Resp BP BP Pulse Ox 08/19/17 09:49 72 130/78 08/19/17 08:00 96.6 F L 72 18 130/78 94 L 08/19/17 06:48 73 16 96 08/19/17 04:00 98.9 F 76 18 157/83 H 96 Weight Weight 280 lb 4.8 oz I&O: 08/18/17 08/19/17 08/20/17 06:59 06:59 06:59 Intake Total 2975 3205 Output Total 1700 1425 Balance 1275 1780 Result Diagrams: 08/19/17 04:23 08/19/17 04:23 Additional Labs: Accuchecks 08/19/17 08/18/17 08/18/17 11:03 20:37 16:20 POC Glucose 165 H 206 H 193 H EKG Reviewed by me: Yes (Tele: NSR) Phys Exam - Physical Examination Morbidly obese HEENT: moist MMs, oral pharynx no lesions Neck: no nodes, no JVD, supple, full ROM Respiratory: no wheezing, no rales, no rhonchi, clear to auscultation bilateral Cardiovascular: RRR, no significant murmur, no rub Gastrointestinal: soft, non-tender, positive bowel sounds distention Musculoskeletal: pulses present Neurological: moves all 4 limbs Lymphatic: no nodes Psychiatric: normal affect, A&O x 3 Skin: no rash, normal turgor, cap refill <2 seconds Dx/Plan (1) UTI (urinary tract infection) Status: Acute (2) Pneumonia Code(s): J18.9 - PNEUMONIA, UNSPECIFIED ORGANISM Status: Acute (3) Hyponatremia Code(s): E87.1 - HYPO-OSMOLALITY AND HYPONATREMIA Status: Acute (4) DM2 (diabetes mellitus, type 2) Status: Chronic (5) Dyslipidemia Code(s): E78.5 - HYPERLIPIDEMIA, UNSPECIFIED Status: Chronic (6) HTN (hypertension) Code(s): I10 - ESSENTIAL (PRIMARY) HYPERTENSION Status: Chronic (7) Anxiety and depression Code(s): F41.8 - OTHER SPECIFIED ANXIETY DISORDERS Status: Chronic (8) Tobacco abuse Code(s): Z72.0 - TOBACCO USE Status: Chronic (9) Cannabis abuse Code(s): F12.10 - CANNABIS ABUSE, UNCOMPLICATED Status: Chronic (10) Hypokalemia Code(s): E87.6 - HYPOKALEMIA Status: Resolved - Plan * . Continuie IV meropenem. Macrobid at the time of discharge. Ambulate pt. Review of Systems - Review of Systems Constitutional: negative: Fever, Chills, Sweats, Weakness, Malaise Respiratory: negative: Cough, Dry, Shortness of Breath, Hemoptysis, SOB with Excertion, Pleuritic Pain, Sputum, Wheezing Cardiovascular: negative: Chest Pain, Palpitations, Orthopnea, Paroxysmal Noc. Dyspnea, Edema, Light Headedness - Medications/Allergies Allergies/Adverse Reactions: Allergies Allergy/AdvReac Type Severity Reaction Status Date / Time ketorolac [From Toradol] Allergy Verified 08/16/17 22:30 metformin Allergy Anaphylaxis Verified 08/16/17 22:30 tramadol Allergy Hives Verified 08/16/17 22:30 Medications: Current Medications Acetaminophen (Tylenol) 650 mg PO Q4H PRN PRN Reason: Headache/Fever or Pain Hydrocodone Bitart/Acetaminophen ([place] 5/325) 1 tab PO Q4H PRN PRN Reason: Moderate Pain (4-6) Last Admin: 08/19/17 05:11 Dose: 1 tab Al Hydroxide/Mg Hydroxide (Maalox) 30 ml PO Q6H PRN PRN Reason: Heartburn or Indigestion Albuterol Sulfate (Proventil Hfa) 1 puff INH Q4H PRN PRN Reason: SOB &/or Wheezing Albuterol/Ipratropium (Duoneb) 3 ml NEB [id number] PRN PRN Reason: SOB &/or Wheezing Last Admin: 08/18/17 18:39 Dose: 3 ml Amitriptyline HCl (Elavil) 75 mg PO HS [facility]ZBET Last Admin: 08/18/17 20:25 Dose: 75 mg Atorvastatin Calcium (Lipitor) 10 mg PO HS [facility]ZBET Last Admin: 08/18/17 20:25 Dose: 10 mg Benzonatate (Tessalon) 100 mg PO Q4H PRN PRN Reason: Cough Bisacodyl (Dulcolax) 10 mg PO DAILYPRN PRN PRN Reason: Constipation Bisacodyl (Dulcolax) 5 mg PO BID [facility] TO [facility] Last Admin: 08/19/17 09:50 Dose: 5 mg Calcium Carbonate (Tums) 1,000 mg PO Q4H PRN PRN Reason: Heartburn or Indigestion Clonidine HCl (Catapres) 0.1 mg PO Q4H PRN PRN Reason: Systolic BP > 160 Dextrose/Water (Dextrose 50%) 25 gm SLOW IVP PRN PRN PRN Reason: Hypoglycemia Famotidine (Pepcid) 20 mg PO BID [facility] Last Admin: 08/19/17 09:51 Dose: 20 mg Furosemide (Lasix) 20 mg PO DAILYPRN PRN PRN Reason: swelling Glucagon (Glucagon) 1 mg IM PRN PRN PRN Reason: Hypoglycemia Glyburide (Diabeta) 5 mg PO BID-[facility] Last Admin: 08/19/17 09:47 Dose: Not Given Guaifenesin (Robitussin Sf) 200 mg PO Q4H PRN PRN Reason: Cough Guaifenesin/Dextromethorphan (Mucinex Dm) 1 tab PO Q12HR [facility] Last Admin: 08/19/17 09:49 Dose: 1 tab Lisinopril/HCTZ (Prinizide 20-25) 1 tab PO DAILY [facility] Last Admin: 08/19/17 09:49 Dose: 1 tab Haloperidol (Haldol) 5 mg PO QID [facility] Last Admin: 08/19/17 14:09 Dose: 5 mg Haloperidol (Haldol) 1 mg PO QID [facility] Last Admin: 08/19/17 14:09 Dose: 1 mg Heparin Sodium (Porcine) (Heparin) 5,000 units SC BID [facility] Last Admin: 08/19/17 09:52 Dose: 5,000 units Hydralazine HCl (Apresoline) 10 mg SLOW IVP Q4H PRN PRN Reason: Systolic BP > 170 Dextrose/Water (D5w) 1,000 mls @ 0 mls/hr IV .Q0M PRN; As Directed PRN Reason: Hypoglycemia Sodium Chloride (Normal Saline 0.9%) 1,000 mls @ 75 mls/hr IV .[id number] [facility]END[facility] Last Admin: 08/19/17 03:06 Dose: 1,000 mls Azithromycin 500 mg/ Sodium (Chloride) 250 mls @ 250 mls/hr IVPB Q24HR [facility] Last Admin: 08/19/17 15:21 Dose: 250 mls Meropenem 1 gm/ Miscellaneous Medication 1 each/ Sodium Chloride 100 mls @ 200 mls/hr IVPB 0800,1600,2359 [facility] Last Admin: 08/19/17 09:50 Dose: 100 mls Insulin Human Lispro (Humalog) 0 units SC .MODERATE SLIDING SC PRN PRN Reason: Moderate Correctional Scale Last Admin: 08/19/17 14:07 Dose: 2 unit Insulin Human Lispro (Humalog) 0 units SC .BEDTIME SLIDING SC PRN PRN Reason: Bedtime Correctional Scale Last Admin: 08/17/17 20:57 Dose: 2 unit Insulin Human NPH (Humulin N) 30 unit SC 1630 [facility] Last Admin: 08/18/17 16:54 Dose: 30 unit Insulin Human NPH (Humulin N) 40 unit SC DAILY-AC [facility] Last Admin: 08/19/17 09:45 Dose: 40 unit Loratadine (Claritin) 10 mg PO DAILYPRN PRN PRN Reason: Sinus Symptoms Lorazepam (Ativan) 1 mg PO Q4H PRN PRN Reason: Anxiety/Agitation Last Admin: 08/17/17 20:42 Dose: 1 mg Metoprolol Tartrate (Lopressor) 100 mg PO BID [facility] Last Admin: 08/19/17 09:50 Dose: 100 mg Mometasone Furoate/Formoterol Fumar (Dulera 200 Mcg/5 Mcg Inhaler) 2 puff INH BID-RT [facility] Last Admin: 08/19/17 06:48 Dose: 2 puff Nicotine (Nicoderm Patch) 14 mg TD Q24HR [facility] Last Admin: 08/19/17 15:21 Dose: 14 mg Nitroglycerin (Nitrostat) 0.4 mg SL Q5MIN PRN PRN Reason: Chest Pain Ondansetron HCl (Zofran) 4 mg IVP Q6H PRN PRN Reason: Nausea/Vomiting Senna (Senokot) 2 tab PO HSPRN PRN PRN Reason: Constipation Sertraline HCl (Zoloft) 200 mg PO DAILY [facility] Last Admin: 08/19/17 09:47 Dose: 200 mg Sodium Chloride (Flush - Normal Saline) 10 ml IVF Q12HR [facility]ZBET Last Admin: 08/19/17 09:52 Dose: Not Given Sodium Chloride (Flush - Normal Saline) 10 ml IVF PRN PRN PRN Reason: Saline Flush
[2017-08-19] MEDS: Amitriptyline HCl 25 MG TAB PO SCH (20:53)
[2017-08-19] MEDS: Atorvastatin Calcium 10 MG TAB PO SCH (20:53)
[2017-08-20] MEDS: Meropenem 1 GM, Admixture Fee 1 EACH in Sodium Chloride 0.9% 100 ML IVPB SCH (05:03)
[2017-08-20] MEDS: Sodium Chloride 0.9% 1,000 ML IV SCH ×2 (05:04→21:00)
[2017-08-20 05:10] LABS: #Basophils 0.1 thou/uL (0.0-0.2); #Eosinphils 0.1 thou/uL (0.0-0.7); #Lymphocytes 2.5 thou/uL (1.20-3.40); #Monocytes 0.5 thou/uL (0.11-0.59); #Neutrophils 4.3 thou/uL (1.40-6.50); %Basophils 0.9 % (0.0-1.0); %Eosinophils 0.9 % (0.0-10.0); %Lymphocytes 33.6 % (21.0-51.0); %Monocytes 6.4 % (0.0-10.0); Hematocrit 39.1 % (36.0-47.0); Mean Platelet Volume 7.5 fL (7.4-10.4); Red Blood Cell (RBC) Count 4.31 mill/uL (4.20-5.40); White Blood Cell (WBC) Count 7.4 thou/uL (4.8-10.8)
[2017-08-20 05:20] LABS: Anion Gap 11 mmol/L (10-20); BUN (Urea Nitrogen) 9 mg/dL (9.8-20.1); Calc. Creatinine Clearance 213 mL/min (70-130); Calcium 9.3 mg/dL (7.8-10.44); Carbon Dioxide 24 mmol/L (22-29); Chloride 104 mmol/L (98-107); Estimated GFR-MDRD Greater than 90
[2017-08-20] MEDS: Mometasone/Formoterol 120 PUFF INHALER INH SCH ×2 (06:38→19:41)
[2017-08-20] MEDS: Lisinopril/Hydrochlorothiazide 20/25 mg Tablet PO SCH (08:00)
[2017-08-20] MEDS: Metoprolol Tartrate 100 MG TAB PO SCH ×2 (08:00→20:58)
[2017-08-20] MEDS: Haloperidol 5 MG TAB PO SCH ×4 (08:00→20:58)
[2017-08-20] MEDS: glyBURIDE 5 MG TAB PO SCH ×2 (08:05→17:00)
[2017-08-20] MEDS: guaiFENesin/DM ER PO SCH ×2 (08:05→20:58)
[2017-08-20] MEDS: Haloperidol 1 MG TAB PO SCH ×4 (08:05→20:58)
[2017-08-20] MEDS: Famotidine 20 MG TAB PO SCH ×2 (08:05→20:59)
[2017-08-20] MEDS: Bisacodyl 5 MG TAB PO SCH ×2 (08:08→20:59)
[2017-08-20] MEDS: Heparin 5,000 UNITS/ML VIAL SC SCH ×2 (08:08→20:58)
[2017-08-20] MEDS: Nicotine 14 MG PATCH TD SCH (08:09)
[2017-08-20] MEDS: NPH, Human Insulin Isophane 300 UNIT/3 ML VIAL SC SCH ×2 (08:09→16:57)
[2017-08-20] MEDS: HYDROcodone/Acetaminophen 5/325 mg Tablet PO PRN ×3 (08:26→22:03)
--- NOTE | 2017-08-20 11:39 | PDOC.PN ---
- Subjective Encounter Start Date: 08/20/17 Encounter Start Time: 07:20 Pt seen for followup re: hypokalemia. Denies chest pain, shortness of breath. No diarrhea. No nausea or vomiting or diarrhea. - Objective MAR Reviewed: Yes Vital Signs & Weight: Vital Signs (12 hours) Temp Pulse Resp BP BP Pulse Ox 08/20/17 08:00 97.8 F 85 16 154/95 H 154/95 H 93 L 08/20/17 06:40 97 08/20/17 06:38 80 16 97 08/20/17 04:00 98.8 F 81 20 158/93 H 92 L 08/20/17 00:00 99.0 F 67 18 105/60 96 Weight Weight 280 lb 4.8 oz I&O: 08/19/17 08/20/17 08/21/17 06:59 06:59 06:59 Intake Total 3205 3675 Output Total 1425 1500 Balance 1780 2175 Result Diagrams: 08/20/17 04:03 08/20/17 04:03 Additional Labs: Accuchecks 08/20/17 08/20/17 08/19/17 07:59 03:53 20:04 POC Glucose 98 92 188 H 08/19/17 08/19/17 08/19/17 15:45 11:03 05:41 POC Glucose 174 H 165 H 130 H Phys Exam - Physical Examination Morbid obesity HEENT: moist MMs, oral pharynx no lesions Respiratory: clear to auscultation bilateral Cardiovascular: RRR Gastrointestinal: soft Musculoskeletal: pulses present Neurological: moves all 4 limbs Psychiatric: normal affect Skin: no rash Dx/Plan (1) Hypokalemia Code(s): E87.6 - HYPOKALEMIA Status: Acute (2) UTI (urinary tract infection) Status: Acute (3) Pneumonia Code(s): J18.9 - PNEUMONIA, UNSPECIFIED ORGANISM Status: Acute (4) DM2 (diabetes mellitus, type 2) Status: Chronic (5) Dyslipidemia Code(s): E78.5 - HYPERLIPIDEMIA, UNSPECIFIED Status: Chronic (6) HTN (hypertension) Code(s): I10 - ESSENTIAL (PRIMARY) HYPERTENSION Status: Chronic (7) Anxiety and depression Code(s): F41.8 - OTHER SPECIFIED ANXIETY DISORDERS Status: Chronic (8) Tobacco abuse Code(s): Z72.0 - TOBACCO USE Status: Chronic (9) Cannabis abuse Code(s): F12.10 - CANNABIS ABUSE, UNCOMPLICATED Status: Chronic (10) Hypokalemia Code(s): E87.6 - HYPOKALEMIA Status: Resolved (11) Hyponatremia Code(s): E87.1 - HYPO-OSMOLALITY AND HYPONATREMIA Status: Resolved (12) Sepsis Code(s): A41.9 - SEPSIS, UNSPECIFIED ORGANISM Status: Resolved - Plan continue antibiotics, PT/OT, out of bed/ambulate, DVT proph w/heparin, DVT proph w/SCDs * . Replace potassium. Change to oral antibiotics (cefdinir for pneumonia, Macrobid for multidrug resistant E. coli). Discontinue meropenem, azithromycin. Ambulate pt. Discontinue IV fluids. Review of Systems - Review of Systems Constitutional: negative: Fever, Chills, Sweats, Weakness, Malaise Respiratory: Cough. negative: Dry, Shortness of Breath, Hemoptysis, SOB with Excertion, Pleuritic Pain, Sputum, Wheezing Genitourinary: negative: Dysuria, Frequency, Incontinence, Hematuria, Retention - Medications/Allergies Allergies/Adverse Reactions: Allergies Allergy/AdvReac Type Severity Reaction Status Date / Time ketorolac [From Toradol] Allergy Verified 08/16/17 22:30 metformin Allergy Anaphylaxis Verified 08/16/17 22:30 tramadol Allergy Hives Verified 08/16/17 22:30 Medications: Current Medications Acetaminophen (Tylenol) 650 mg PO Q4H PRN PRN Reason: Headache/Fever or Pain Hydrocodone Bitart/Acetaminophen ([place] 5/325) 1 tab PO Q4H PRN PRN Reason: Moderate Pain (4-6) Last Admin: 08/20/17 08:26 Dose: 1 tab Al Hydroxide/Mg Hydroxide (Maalox) 30 ml PO Q6H PRN PRN Reason: Heartburn or Indigestion Albuterol Sulfate (Proventil Hfa) 1 puff INH Q4H PRN PRN Reason: SOB &/or Wheezing Albuterol/Ipratropium (Duoneb) 3 ml NEB [id number] PRN PRN Reason: SOB &/or Wheezing Last Admin: 08/19/17 15:52 Dose: 3 ml Amitriptyline HCl (Elavil) 75 mg PO HS LIZBET Last Admin: 08/19/17 20:53 Dose: 75 mg Atorvastatin Calcium (Lipitor) 10 mg PO HS [facility] Last Admin: 08/19/17 20:53 Dose: 10 mg Benzonatate (Tessalon) 100 mg PO Q4H PRN PRN Reason: Cough Bisacodyl (Dulcolax) 10 mg PO DAILYPRN PRN PRN Reason: Constipation Bisacodyl (Dulcolax) 5 mg PO BID [facility] Last Admin: 08/20/17 08:08 Dose: Not Given Calcium Carbonate (Tums) 1,000 mg PO Q4H PRN PRN Reason: Heartburn or Indigestion Cefdinir (Omnicef) 300 mg PO BID [facility] Clonidine HCl (Catapres) 0.1 mg PO Q4H PRN PRN Reason: Systolic BP > 160 Dextrose/Water (Dextrose 50%) 25 gm SLOW IVP PRN PRN PRN Reason: Hypoglycemia Famotidine (Pepcid) 20 mg PO BID [facility] Last Admin: 08/20/17 08:05 Dose: 20 mg Furosemide (Lasix) 20 mg PO DAILYPRN PRN PRN Reason: swelling Glucagon (Glucagon) 1 mg IM PRN PRN PRN Reason: Hypoglycemia Glyburide (Diabeta) 5 mg PO BID-[facility] Last Admin: 08/20/17 08:05 Dose: Not Given Guaifenesin (Robitussin Sf) 200 mg PO Q4H PRN PRN Reason: Cough Guaifenesin/Dextromethorphan (Mucinex Dm) 1 tab PO Q12HR [facility] Last Admin: 08/20/17 08:05 Dose: 1 tab Lisinopril/HCTZ (Prinizide 20-25) 1 tab PO DAILY [facility] Last Admin: 08/20/17 08:00 Dose: 1 tab Haloperidol (Haldol) 5 mg PO QID [facility] Last Admin: 08/20/17 08:00 Dose: 5 mg Haloperidol (Haldol) 1 mg PO QID [facility] Last Admin: 08/20/17 08:05 Dose: 1 mg Heparin Sodium (Porcine) (Heparin) 5,000 units SC BID [facility] Last Admin: 08/20/17 08:08 Dose: 5,000 units Hydralazine HCl (Apresoline) 10 mg SLOW IVP Q4H PRN PRN Reason: Systolic BP > 170 Dextrose/Water (D5w) 1,000 mls @ 0 mls/hr IV .Q0M PRN; As Directed PRN Reason: Hypoglycemia Sodium Chloride (Normal Saline 0.9%) 1,000 mls @ 75 mls/hr IV .[id number] [facility] Last Admin: 08/20/17 05:04 Dose: 1,000 mls Insulin Human Lispro (Humalog) 0 units SC .MODERATE SLIDING SC PRN PRN Reason: Moderate Correctional Scale Last Admin: 08/19/17 14:07 Dose: 2 unit Insulin Human Lispro (Humalog) 0 units SC .BEDTIME SLIDING SC PRN PRN Reason: Bedtime Correctional Scale Last Admin: 08/17/17 20:57 Dose: 2 unit Insulin Human NPH (Humulin N) 30 unit SC 1630 [facility] Last Admin: 08/19/17 16:55 Dose: 30 unit Insulin Human NPH (Humulin N) 40 unit SC DAILY-AC [facility] Last Admin: 08/20/17 08:09 Dose: Not Given Loratadine (Claritin) 10 mg PO DAILYPRN PRN PRN Reason: Sinus Symptoms Lorazepam (Ativan) 1 mg PO Q4H PRN PRN Reason: Anxiety/Agitation Last Admin: 08/17/17 20:42 Dose: 1 mg Metoprolol Tartrate (Lopressor) 100 mg PO BID [facility] Last Admin: 08/20/17 08:00 Dose: 100 mg Mometasone Furoate/Formoterol Fumar (Dulera 200 Mcg/5 Mcg Inhaler) 2 puff INH BID-RT [facility] Last Admin: 08/20/17 06:38 Dose: 2 puff Nicotine (Nicoderm Patch) 14 mg TD Q24HR [facility] Last Admin: 08/20/17 08:09 Dose: 14 mg Nitrofurantoin Macrocrystals (Macrobid) 100 mg PO BID [facility] Nitroglycerin (Nitrostat) 0.4 mg SL Q5MIN PRN PRN Reason: Chest Pain Ondansetron HCl (Zofran) 4 mg IVP Q6H PRN PRN Reason: Nausea/Vomiting Senna (Senokot) 2 tab PO HSPRN PRN PRN Reason: Constipation Sertraline HCl (Zoloft) 200 mg PO DAILY [facility] Last Admin: 08/20/17 08:08 Dose: 200 mg Sodium Chloride (Flush - Normal Saline) 10 ml IVF Q12HR [facility] Last Admin: 08/20/17 08:09 Dose: Not Given Sodium Chloride (Flush - Normal Saline) 10 ml IVF PRN PRN PRN Reason: Saline Flush
[2017-08-20] MEDS ORDERED: Potassium Chloride 20 MEQ TAB PO SCH (12:00)
--- NOTE | 2017-08-20 16:55 | PQF ---
CLINICAL DOCUMENTATION IMPROVEMENT CLARIFICATION FORM: ICD-10 Updated PLEASE DO AN ADDENDUM TO THE PROGRESS NOTE WITH ANY DOCUMENTATION UPDATES OR ADDITIONS AND CARRY THROUGH TO DC SUMMARY. THANK YOU. DATE: 08/20/17 ATTN: Dr. Landry Please exercise your independent, professional judgment in responding to the clarification form. Clinical indicators are provided on the bottom of this form for your review Please check appropriate box(s) to clarify if the following diagnosis has been ruled in our ruled out: SEPSIS SECONDARY TO PNEUMONIA. (H&P) [ X ] Ruled in diagnosis [ ] Continue to treat [ X ] Resolved [ ] Ruled out diagnosis [ ] Cannot rule out diagnosis [ ] Other diagnosis [ ] Unable to determine For continuity of documentation, please document condition throughout progress notes and discharge summary. Thank You. CLINICAL INDICATORS - SIGNS / SYMPTOMS / LABS ER RECORD: TRANSFER FROM [facility] . LABS DONE THERE SHOWED WBC OF 14.6 & LACTIC ACID OF 3. H&P: SEPSIS SECONDARY TO PNEUMONIA. PN 08/20: CHANGE TO ORAL ANTIBIOTICS ( CEFDNIR FOR PNEUMONIA, MACROBID FOR MULTIDRUG RESISTANT E. COLI) RISKS: H&P: HYPOXIC ON PRESENTATION REQUIRING UP TO 4 LITERS OF OXYGEN INITIALLY. ADMITTED FOR EARLY SEPSIS D/T PNEUMONIA & POSSIBLE UTI. TREATMENT: CPOE 08/19: MEROPENEM 1 GM IV . DC'D 08/20. CPOE 08/20: MACROBID 100 MG PO BID CPOE 08/20: OMNICEF 300MG PO BID Thank you, Magda (This form is maintained as a part of the permanent medical record) 2015 [employer] All Rights Reserved Magda Polk RN, BSN [email or web address] Office: [phone] [facility]
[2017-08-20] MEDS: Amitriptyline HCl 25 MG TAB PO SCH (20:58)
[2017-08-20] MEDS: Atorvastatin Calcium 10 MG TAB PO SCH (20:58)
[2017-08-20] MEDS: Nitrofurantoin Monohyd/M-Cryst 100 MG CAP PO SCH (20:59)
[2017-08-20] MEDS: Cefdinir 300 MG CAP PO SCH (20:59)
[2017-08-21] MEDS: Mometasone/Formoterol 120 PUFF INHALER INH SCH (07:26)
[2017-08-21 08:33] VITALS: BP 129/70; TEMP 98
[2017-08-21] MEDS: guaiFENesin/DM ER PO SCH (08:54)
[2017-08-21] MEDS: glyBURIDE 5 MG TAB PO SCH (08:55)
[2017-08-21] MEDS: Haloperidol 1 MG TAB PO SCH (08:55)
[2017-08-21] MEDS: Lisinopril/Hydrochlorothiazide 20/25 mg Tablet PO SCH (08:55)
[2017-08-21] MEDS: Bisacodyl 5 MG TAB PO SCH (08:55)
[2017-08-21] MEDS: Cefdinir 300 MG CAP PO SCH (08:55)
[2017-08-21] MEDS: Metoprolol Tartrate 100 MG TAB PO SCH (08:55)
[2017-08-21] MEDS: Heparin 5,000 UNITS/ML VIAL SC SCH (08:56)
[2017-08-21] MEDS: Haloperidol 5 MG TAB PO SCH (08:56)
[2017-08-21] MEDS: Sodium Chloride 0.9% 1,000 ML IV SCH (08:58)
--- OUTSIDE RECORDS SUMMARY | 2017-08-21 08:59 | XMS | Continuity of Care Document ---
:1965 Author Organization [facility] Care Team Providers Name Role Phone PABLO GILLIAM Admitting Physician PABLO GILLIAM Attending Physician FRANCES BRANNON Primary Care Physician Hospital Admission Diagnosis Code Admission Diagnosis Date [id number] Nausea and vomiting Social History Element Description Code Description Smoking Status Code Start Date End Date System Smoking Status [id number] Never smoker SNOMED-CT Problems Code Code System Problem Name Start Date End Date Status 91789021 SNOMED-CT Acute gastroenteritis 12/12/2016 Active 81953612 SNOMED-CT Urinary tract infectious disease 01/20/2016 Active 55513267 SNOMED-CT Abdominal pain 11/16/2015 Active 21184222 SNOMED-CT Urinary tract infectious disease 11/16/2015 Active 94577706 SNOMED-CT Hypertensive disorder Unknown Active 82171928 SNOMED-CT Diabetes mellitus type 2 Unknown Active Medications RxNorm Medication Dose Route Instructions Indications Start End Status Date Date 435 Albuterol 1.25 Inhalation inhaled 3 shortness of Active milligram times per day breath or as needed. wheezing 435 Albuterol 2 puff Inhalation inhaled every shortness of Active 4 hours as breath or needed. wheezing (administer with spacer) 053981 Ciprofloxacin 500 Oral orally 2 01/19/ Active 500 MG Oral milligram times per day 2016 Tablet (10 day) 279858 Dicyclomine 10 Oral orally every abdominal Active Hydrochloride 10 milligram 8 hours as discomfort MG Oral Capsule needed. 692608 Furosemide 20 MG 20 Oral orally every Active Oral Tablet milligram morning 4815 Glyburide 2.5 Oral orally every Active milligram day 19780603 Hydrochlorothiaz 1 tablet Oral orally every Active sepideh 25 MG / day Lisinopril 20 MG Oral Tablet Lovastatin 20 MG 20 Oral orally every Active Oral Tablet milligram evening 211483 Metoprolol 100 Oral orally every Active Tartrate 100 MG milligram 12 hours Oral Tablet 122967 Ciprofloxacin 500 Oral orally every No 500 MG Oral milligram 12 hours (7 Longer Tablet days) Active 484874 Dicyclomine 10 Oral orally every No Hydrochloride 10 milligram 6 hours as Longer MG Oral Capsule needed. (4 Active days) (for abdominal pain) Allergies Code Code Allergy Type Reaction Severity Start End Status System Substance Date Date 71964 RXNorm Toradol Drug Anaphylaxis Unknown Active allergy (Severe Allergic Rxn) 864506 RXNorm Ultram Drug Unknown Active allergy 6809 RXNorm metformin Drug Anaphylaxis Unknown Active allergy (Severe Allergic Rxn) 91655 RXNorm tramadol Drug Anaphylaxis Unknown Active allergy (Severe Allergic Rxn) Results Laboratory Results Order: UA URINALYSIS WITH MICROSCOPY LOINC Test Result Flag Range Unit Date 5778-03 1Color:Type:Pt:Urine: Lt. Yellow 12/12/2016 05:36 Nom 5767-9 1Appearance:Aper:Pt:U SL CLOUDY 12/12/2016 05:36 rine:Nom 2349-9 1Glucose:ACnc:Pt:Urin 100 A NEGATIVE 12/12/2016 05:36 e:Ord 5770-3 1Bilirubin:ACnc:Pt:Ur NEGATIVE NEGATIVE 12/12/2016 05:36 ine:Ord:Test strip 2514-8 1Ketones:ACnc:Pt:Urin NEGATIVE NEGATIVE 12/12/2016 05:36 e:Ord:Test strip 5811-5 1Specific 1.015 A 1.005-1.030 12/12/2016 05:36 gravity:Rden:Pt:Urine :Qn:Test strip 5794-3 1Hemoglobin:ACnc:Pt:U TRACE-INTACT A NEGATIVE 12/12/2016 05:36 rine:Ord:Test strip 5803-2 1pH:LsCnc:Pt:Urine:Qn 6.5 A 4.5-8.0 12/12/2016 05:36 :Test strip 54413-8 1Protein:ACnc:Pt:Urin 30 A NEGATIVE 12/12/2016 05:36 e:Ord:Test strip 5818-0 1Urobilinogen:ACnc:Pt 0.2 0.2 12/12/2016 05:36 :Urine:Ord:Test strip 5802-4 1Nitrite:ACnc:Pt:Urin POSITIVE A NEGATIVE 12/12/2016 05:36 e:Ord:Test strip 5799-2 1Leukocyte SMALL A NEGATIVE 12/12/2016 05:36 esterase:ACnc:Pt:Urin e:Ord:Test strip 5821-4 1Leukocytes:Naric:Pt: 50-60 A 0-5 12/12/2016 05:36 Urine sed:Qn:Microscopy.lig ht.HPF 06996-9 1Erythrocytes:Naric:P 0-3 A 0-5 12/12/2016 05:36 t:Urine sed:Qn:Microscopy.lig ht.HPF 51461-0 1Epithelial 1-5 A 0-10 12/12/2016 05:36 cells.squamous:Naric: Pt:Urine sed:Qn:Microscopy.lig ht.HPF 8247-9 1Mucus:ACnc:Pt:Urine None Seen None Seen 12/12/2016 05:36 sed:Ord:Microscopy.[facility] 5769-5 1Bacteria:Naric:Pt:Ur 3+ A None Seen,Trace 12/12/2016 05:36 ine sed:Qn:Microscopy.lig ht.HPF Performing Lab Footnotes:[address] [place], [place] [id number] [place] [address] [address] [place] [address] MARBELLA ARELLANO Order: AMYLASE SERUM LOINC Test Result Flag Range Unit Date 1Amylase 60 12-103 U/L 12/12/2016 04:10 Performing Lab Footnotes:[address] [place] [address] [id number] [facility] [address] [place] [address] MARBELLA ARELLANO Order: CBC PLATELET AUTO DIFF LOINC Test Result Flag Range Unit Date 55923-6 1Leukocytes^^corrected for 7.9 4.8-10.8 k/ul 12/12/2016 04:10 nucleated erythrocytes:NCnc:Pt:Bld:Q n:Automated count 789-8 1Erythrocytes:NCnc:Pt:Bld: 4.71 4.20-5.40 Millions/ul 12/12/2016 04:10 Qn:Automated count 718-7 1Hemoglobin:MCnc:Pt:Bld:Qn 14.1 H 12.0-14.0 gm/dl 12/12/2016 04:10 4544-3 1Hematocrit:VFr:Pt:Bld:Qn: 41.8 37.0-47.0 % 12/12/2016 04:10 Automated count 787-2 1Erythrocyte mean 88.8 81.0-99.0 fL 12/12/2016 04:10 corpuscular volume:EntVol:Pt:RBC:Qn:Au tomated count 785-6 1Erythrocyte mean 29.9 27.0-31.0 pg 12/12/2016 04:10 corpuscular hemoglobin:EntMass:Pt:RBC: Qn:Automated count 786-4 1Erythrocyte mean 33.7 33.0-37.0 gm/dl 12/12/2016 04:10 corpuscular hemoglobin concentration:MCnc:Pt:RBC: Qn:Automated count 788-0 1Erythrocyte distribution 14 11.5-14.5 % 12/12/2016 04:10 width:Ratio:Pt:RBC:Qn:Auto mated count 777-3 1Platelets:NCnc:Pt:Bld:Qn: 215 130-400 k/ul 12/12/2016 04:10 Automated count 26920-3 1Platelet mean 8 7.4-10.4 fL 12/12/2016 04:10 volume:EntVol:Pt:Bld:Qn:Au tomated count 770-8 1Neutrophils/100 66.9 42.0-75.0 % 12/12/2016 04:10 leukocytes:NFr:Pt:Bld:Qn:A utomated count 736-9 1Lymphocytes/100 25.3 13.0-42.0 % 12/12/2016 04:10 leukocytes:NFr:Pt:Bld:Qn:A utomated count 5905-5 1Monocytes/100 5.9 4.0-14.0 % 12/12/2016 04:10 leukocytes:NFr:Pt:Bld:Qn:A utomated count 713-8 1Eosinophils/100 1.4 1.0-3.0 % 12/12/2016 04:10 leukocytes:NFr:Pt:Bld:Qn:A utomated count 706-2 1Basophils/100 0.5 L 1.0-3.0 % 12/12/2016 04:10 leukocytes:NFr:Pt:Bld:Qn:A utomated count 1NRBC, Auto 0 0-0 /100WBC 12/12/2016 04:10 Performing Lab Footnotes:[address] [place] [address]- - [id number] [facility] [address] [place] [address] MARBELLA ARELLANO Order: CMP COMPREHENSIVE METABOLIC PANEL LOINC Test Result Flag Range Unit Date 1Glucose 257 H 75-110 mg/dl 12/12/2016 04:10 1BUN 11 6.0-17.0 mg/dl 12/12/2016 04:10 1Creatinine 0.5 0.4-1.2 mg/dl 12/12/2016 04:10 1Sodium 135 L 137-145 mmol/l 12/12/2016 04:10 1Potassium 3.2 L 3.5-5.0 mmol/l 12/12/2016 04:10 1Chloride 105 98-107 mmol/l 12/12/2016 04:10 1CO2 21 L 22-30 mmol/l 12/12/2016 04:10 1Anion Gap 9 12/12/2016 04:10 1Calcium 9 8.4-10.2 mg/dl 12/12/2016 04:10 1T Protein 6.6 5.1-8.7 gm/dl 12/12/2016 04:10 1Albumin 3.7 3.5-4.6 gm/dl 12/12/2016 04:10 1A/G Ratio 1.3 1.1-2.2 % 12/12/2016 04:10 1AST (SGOT) 37 H 11-36 U/L 12/12/2016 04:10 1ALT (SGPT) 57 H 11-40 U/L 12/12/2016 04:10 1Alkaline Phos 96 47-114 U/L 12/12/2016 04:10 1Total Bilirubin 0.6 0.2-1.2 mg/dl 12/12/2016 04:10 1Globulin 2.9 2.3-3.5 gm/dl 12/12/2016 04:10 1Calcium, Corrected 9.2 8.4-10.2 mg/dl 12/12/2016 04:10 Note: Various formulas exist for corrected serum calcium results, each yielding different values. This corrected result was based on the formula: Corrected Calcium=SerumCalcium + [0.8 * ( 4 - SerumAlbumin)] 1EGFR if >60 mL/min/1.73m^2 12/12/2016 04:10 1EGFR if Non- >60 mL/min/1.73m^2 12/12/2016 04:10 Note: Estimated Glomerular Filtration Rate (eGFR) Reference Intervals Decision Points for 18 years and older and average body mass: >=60 Does not exclude kidney disease. 30 - 59 Suggests moderate chronic kidney disease and indicates the need for further investigation including assessment of proteinuria and cardiovascular factors. < 30 Usually indicates a need for referral for assessment and management of chronic kidney failure. Performing Lab Footnotes:[address] [place] [address]- - [id number] [facility] [address] [place] [address] MARBELLA ARELLANO Order: LIPASE SERUM LOINC Test Result Flag Range Unit Date 1Lipase 115 8-223 U/L 12/12/2016 04:10 Performing Lab Footnotes:[address] [place] [address] - [id number] - [address] [facility] [address] [place] [address] MARBELLA ARELLANO Order: PROTIME PT INR LOINC Test Result Flag Range Unit Date 1Protime 10.5 9.0-11.8 seconds 12/12/2016 04:10 6301-6 1Coagulation tissue factor 1 0.9-1.1 12/12/2016 04:10 induced.INR:RelTime:Pt:PPP:Qn:Co ag Note: INR results are intended ONLY to monitor Oral Anticoagulant therapy in stablized patients. The INR Therapeutic Range is 2.0 - 3.0 Patients with a mechanical heart, the INR Range is 2.5 - 3.5 Performing Lab Footnotes:[address] [place] [address] - [id number] - [facility] [address] [place] [address] MARBELLA ARELLANO Order: PTT PARTIAL THROMBOPLASTIN TM LOINC Test Result Flag Range Unit Date 1aPTT 27.7 25.3-35.7 seconds 12/12/2016 04:10 Performing Lab Footnotes:[address] [place] [address] - [id number] - [address] [place] [id number] MARBELLA - TREVON ARELLANO Vital Signs Vitals Value Date Body Temperature 98.7 F 12/12/2016 Respiratory Rate 16 12/12/2016 O2% BldC Oximetry 98 12/12/2016 BP Systolic 148 mmHg 12/12/2016 BP Diastolic 95 mmHg 12/12/2016 Plan of Care No data in the system Procedures No data in the system Encounters Date Code Diagnosis Status (ICD10) - K529 NONINFECTIVE GE & COLITIS UNS Active Immunizations Vaccine Code Code System Vaccine Name Date Status 100 CVX pneumococcal conjugate Completed vaccine, 7 valent 123 CVX influenza virus vaccine, Not given (patient H5N1, A/[place] objection) (national stockpile) Functional Status Code Functional/Cognitive Condition Code System Date Status 788411233 Memory function normal [facility] 12/12/2016 Active 180278487 Orientated [facility] 12/12/2016 Active 000883559 Mentally alert [facility] 12/12/2016 Active 184604917 Ability to perform activities of everyday [facility] 12/12/2016 Active life (observable entity) 455136411 Stable gait (finding) [facility] 12/12/2016 Active Hospital Discharge Instructions AssessmentCondition at DischargeImprovedDischarge ViaAmbulatoryDischarge from Emergency DepartmentHomeResponsePatient / Family / SO voiced understandingCondition at Discharge NarrativeA& O x 4Respirations even and unlaboredNAD NotedAccompanied BySelfValuablesN/AIV Device / SiteDiscontinuedDischarge NoteInstructed patient to follow-up with PCP and return to ED for worsening of conditionDocumentation of Medication AdministrationReviewed prior to DischargeAll meds documented in ED Med/Times TabPatient Preferred Education LanguageEnglishDischarge InstructionsPatient education providedDischarge Instructions GivenPrescriptions GivenTeaching MethodQuestions / AnswersPatient education providedDischarge Instructions Explained ToPatientQualityWritten Discharge Plan given to the Patient at the time of discharge contains:Reason for hospitalizationDischarge medications including what medications to take, how to take them, and how to obtain the medication.Patient / family / caregiver given instructions on what to do if their condition changes.Discharge Instructions 2Discharge DiagnosisgastroenteritisImportant InformationConsult your physician or return to the Emergency Department immediately if worse, if not better as expected, or if any problems arise.Follow Up CareYesImportant InformationPlease understand that you have received care only on an emergency basis. If your condition does not improve, you should call your personal physician for follow-up care. If you do not have a physician, you may call the referred physician listed.Follow Up CarePatient To ScheduleImportant InformationIf you have questions about your care or these discharge instructions, you may call the Emergency Department. Please take your discharge paperwork with you to any follow-up appointments.Follow-Up With:Primary Care PhysicianActivity LevelAs tolerated, unrestrictedDietRegularPrescriptions Given Via:Printed and given to patient/ caregiver.Patient TeachingPatient education provided
--- OUTSIDE RECORDS SUMMARY | 2017-08-21 08:59 | XMS | Continuity of Care Document ---
:1965 Author Organization [facility] Care Team Providers Name Role Phone PABLO GILLIAM Admitting Physician PABLO GILLIAM Attending Physician FRANCES BRANNON Primary Care Physician Hospital Admission Diagnosis No data in the System Social History Element Description Code Description Smoking Status Code Start Date End Date System Smoking Status [id number] Never smoker SNOMED-CT Problems Code Code System Problem Name Start Date End Date Status 49376124 SNOMED-CT Acute gastroenteritis 12/12/2016 Active 18230946 SNOMED-CT Urinary tract infectious disease 01/20/2016 Active 49185346 SNOMED-CT Abdominal pain 11/16/2015 Active 15162958 SNOMED-CT Urinary tract infectious disease 11/16/2015 Active 50778480 SNOMED-CT Hypertensive disorder Unknown Active 64099046 SNOMED-CT Diabetes mellitus type 2 Unknown Active Medications RxNorm Medication Dose Route Instructions Indications Start End Status Date Date 435 Albuterol 1.25 Inhalation inhaled 3 shortness of Active milligram times per day breath or as needed. wheezing 435 Albuterol 2 puff Inhalation inhaled every shortness of Active 4 hours as breath or needed. wheezing (administer with spacer) 536524 Ciprofloxacin 500 Oral orally 2 01/19/ Active 500 MG Oral milligram times per day 2016 Tablet (10 day) 893448 Dicyclomine 10 Oral orally every abdominal Active Hydrochloride 10 milligram 8 hours as discomfort MG Oral Capsule needed. 226145 Furosemide 20 MG 20 Oral orally every Active Oral Tablet milligram morning 4815 Glyburide 2.5 Oral orally every Active milligram day 19780603 Hydrochlorothiaz 1 tablet Oral orally every Active sepideh 25 MG / day Lisinopril 20 MG Oral Tablet Lovastatin 20 MG 20 Oral orally every Active Oral Tablet milligram evening 228258 Metoprolol 100 Oral orally every Active Tartrate 100 MG milligram 12 hours Oral Tablet 754511 Ciprofloxacin 500 Oral orally every No 500 MG Oral milligram 12 hours (7 Longer Tablet days) Active 091238 Dicyclomine 10 Oral orally every No Hydrochloride 10 milligram 6 hours as Longer MG Oral Capsule needed. (4 Active days) (for abdominal pain) Allergies Code Code Allergy Type Reaction Severity Start End Status System Substance Date Date 01110 RXNorm Toradol Drug Anaphylaxis Unknown Active allergy (Severe Allergic Rxn) 048484 RXNorm Ultram Drug Unknown Active allergy 6809 RXNorm metformin Drug Anaphylaxis Unknown Active allergy (Severe Allergic Rxn) 23295 RXNorm tramadol Drug Anaphylaxis Unknown Active allergy [...] 6.5 A 4.5-8.0 12/12/2016 05:36 :Test strip 48865-7 1Protein:ACnc:Pt:Urin 30 A NEGATIVE 12/12/2016 05:36 e:Ord:Test strip 5818-0 1Urobilinogen:ACnc:Pt 0.2 0.2 12/12/2016 05:36 :Urine:Ord:Test strip 5802-4 1Nitrite:ACnc:Pt:Urin POSITIVE A NEGATIVE 12/12/2016 05:36 e:Ord:Test strip 5799-2 1Leukocyte SMALL A NEGATIVE 12/12/2016 05:36 esterase:ACnc:Pt:Urin e:Ord:Test strip 5821-4 1Leukocytes:Naric:Pt: 50-60 A 0-5 12/12/2016 05:36 Urine sed:Qn:Microscopy.lig ht.HPF 86077-5 1Erythrocytes:Naric:P 0-3 A 0-5 12/12/2016 05:36 t:Urine sed:Qn:Microscopy.lig ht.HPF 97686-0 1Epithelial 1-5 A 0-10 12/12/2016 05:36 cells.squamous:Naric: Pt:Urine sed:Qn:Microscopy.lig ht.HPF 8247-9 1Mucus:ACnc:Pt:Urine None Seen None Seen 12/12/2016 05:36 sed:Ord:Microscopy.[facility] 5769-5 1Bacteria:Naric:Pt:Ur 3+ A None Seen,Trace 12/12/2016 05:36 ine sed:Qn:Microscopy.lig ht.HPF Performing Lab Footnotes:[address] [place], [place] [id number] [place] [address] [address] [place] [address] MARBELLA ARELLANO Order: AMYLASE SERUM LOINC Test Result Flag Range Unit Date 1Amylase 60 12-103 U/L 12/12/2016 04:10 Performing Lab Footnotes:[address] [place] [id number] [place] [address] MARBELLA ARELLANO Order: CBC PLATELET AUTO DIFF LOINC Test Result Flag Range Unit Date 89013-9 1Leukocytes^^corrected for 7.9 4.8-10.8 k/ul 12/12/2016 04:10 [...] 215 130-400 k/ul 12/12/2016 04:10 Automated count 62822-4 1Platelet mean 8 7.4-10.4 fL 12/12/2016 04:10 [...] 0 0-0 /100WBC 12/12/2016 04:10 Performing Lab Footnotes:[address] [place] [address]- - [id number] [facility] [address] [place] [address] MARBELLA ARELLANO Order: CMP COMPREHENSIVE METABOLIC PANEL [...] management of chronic kidney failure. Performing Lab Footnotes:[facility] - [id number] [facility] [address] [place] [address] MARBELLA - TREVON ARELLANO Order: LIPASE SERUM LOINC Test Result Flag Range Unit Date 1Lipase 115 8-223 U/L 12/12/2016 04:10 Performing Lab Footnotes:[address] [place] [address] - [id number] - [address] [facility] [address] [place] [address] MARBELLA ARELLANO Order: PROTIME PT INR LOINC [...] Range is 2.5 - 3.5 Performing Lab Footnotes:[address] [place] [address] - [id number] - [address] [facility] [address] [place] [address] MARBELLA ARELLNAO Order: PTT PARTIAL THROMBOPLASTIN TM LOINC Test Result Flag Range Unit Date 1aPTT 27.7 25.3-35.7 seconds 12/12/2016 04:10 Performing Lab Footnotes:[facility] - [id number] - [address] [place] [address] MARBELLA - TREVON ARELLANO Vital Signs Vitals Value Date Body Temperature 98.7 F 12/12/2016 Respiratory Rate 16 12/12/2016 O2% BldC Oximetry 98 12/12/2016 BP Systolic 148 mmHg 12/12/2016 BP Diastolic 95 mmHg 12/12/2016 Plan of Care No data in the system Procedures No data in the system Encounters No data in the system Immunizations Vaccine Code Code System Vaccine Name Date Status 100 CVX pneumococcal conjugate Completed vaccine, 7 valent 123 CVX influenza virus vaccine, Not given (patient H5N1, A/[place] objection) (national stockpile) Functional Status Code Functional/Cognitive Condition Code System Date Status 777679002 Memory function normal [facility] 12/12/2016 Active 228901229 Orientated [facility] 12/12/2016 Active 718669436 Mentally alert [facility] 12/12/2016 Active 085787334 Ability to perform activities of everyday [facility] 12/12/2016 Active life (observable entity) 270539836 Stable gait (finding) [facility] 12/12/2016 Active Hospital Discharge Instructions AssessmentCondition [...]
[2017-08-21] MEDS: NPH, Human Insulin Isophane 300 UNIT/3 ML VIAL SC SCH (09:00)
[2017-08-21] MEDS: Nitrofurantoin Monohyd/M-Cryst 100 MG CAP PO SCH (10:53)
[2017-08-21] MEDS: HYDROcodone/Acetaminophen 5/325 mg Tablet PO PRN (10:58)
--- NOTE | 2017-08-21 12:19 | DIS ---
DATE OF ADMISSION: 08/16/2017 DATE OF DISCHARGE: 08/21/2017 PRIMARY CARE PHYSICIAN: Leoncio Gonzales M.D. DISCHARGE DISPOSITION: Home. PRIMARY DISCHARGE DIAGNOSES: 1. Urinary tract infection. 2. Community-acquired pneumonia. 3. Sepsis due to urinary tract infection and community-acquired pneumonia. 4. Abnormal electrolytes, corrected. SECONDARY DISCHARGE DIAGNOSES: 1. Gastroesophageal reflux disease. 2. History of pancreatitis. 3. Diabetes type 2. 4. Hypertension. 5. Dyslipidemia. PRIMARY PROCEDURE/OPERATION: None. RADIOLOGICAL INVESTIGATION: CT chest and chest x-ray. SIGNIFICANT LABS: CBC normal. INR 1.0, D-dimer 0.39. Sodium 134, creatinine 0.69. Urinalysis is suggestive of UTI. Urine drug screen is positive for cannabinoids. Urine culture grew E. coli. In fluenza was negative. DISCHARGE MEDICATIONS: ProAir HFA one puff q.4 hourly p.r.n., albuterol nebulization q.4 hourly p.r .n., amitriptyline 75 mg p.o. bedtime, Dulcolax 5 mg p.o. b.i.d., Omnicef 300 mg p.o. b.i.d. for 7 d ays, Macrobid 100 mg p.o. b.i.d. for 7 days, Florastor 250 mg p.o. daily for 7 days, Advair Diskus one inhalation b.i.d., Lasix 20 mg p.o. daily p.r.n., Haldol 6 mg p.o. q.i.d., Humulin N 30 units in the evening and 40 units in the morning, Prinzide 20/25 one tablet p.o. daily, lovastatin 40 mg p.o . at bedtime, metoprolol 100 mg p.o. b.i.d., Zoloft 200 mg p.o. daily, glyburide 5 mg p.o. b.i.d., A tarax 25 mg p.o. b.i.d. CONTRAINDICATIONS: None. CODE STATUS: FULL CODE. INPATIENT CONSULTANTS: None. ALLERGIES: TORADOL, METFORMIN, and TRAMADOL. DISCHARGE PLAN: Post-hospital, the patient will follow up with primary care physician in 1 week. HOSPITAL COURSE: A 52-year-old female who was admitted by Dr. Day, please see her H\T\P for fur ther details. The patient was admitted for pneumonia. She was having cough, fever and shortness of breath. She had CT chest, which diagnosed as bilateral pneumonia. Her urinalysis was also consist ent with UTI. The patient was admitted to telemetry floor. She was treated with broad-spectrum ant ibiotic therapy. She was given levofloxacin and Zosyn. Her influenza screen was negative. This patient's culture grew E. coli and there was multidrug resistant and based on culture and sensi tivity result, the patient was given Macrobid for UTI and for pneumonia treatment we changed to Omni cef upon discharge. The patient remained afebrile. While in hospital, she was on room air. She wa s doing very well and she expressed her wish to go home today. The patient is seen and examined at bedside today. REVIEW OF SYSTEMS: Reviewed and negative. PHYSICAL EXAMINATION: VITAL SIGNS: Currently, temperature 98.0, pulse 74, respiratory rate 20, blood pressure 129/70, reynaldo ght 280 pounds. GENERAL: The patient is currently alert, awake, no acute distress. HEAD: Normocephalic, atraumatic. LUNGS: Clear. CARDIAC: S1, S2 regular, without any murmurs. ABDOMEN: Soft and benign. EXTREMITIES: No edema. NEUROLOGIC: Nonfocal examination. Overall, this patient is medically stable for discharge today.
[2017-08-21] MEDS: Famotidine 20 MG TAB PO SCH (12:21)
== END 2017-08-21 12:14 | disposition home or self-care (01) | DRG 871 ==
LOC: ERS 19:17 → 2NO 22:19 → T4-A 08-19 18:40
PROVIDERS: ADMIT Internal Medicine; ATTEND Internal Medicine
DX: A41.9 Sepsis, unspecified organism (principal); J18.9 Pneumonia, unspecified organism; I13.0 Hypertensive heart and chronic kidney disease with heart failure and stage 1 through stage 4 chronic kidney disease, or unspecified chronic kidney disease; E11.22 Type 2 diabetes mellitus with diabetic chronic kidney disease; I50.9 Heart failure, unspecified; N39.0 Urinary tract infection, site not specified; E87.1 Hypo-osmolality and hyponatremia; Z68.43 Body mass index [BMI] 50.0-59.9, adult; B96.20 Unspecified Escherichia coli [E. coli] as the cause of diseases classified elsewhere; E87.6 Hypokalemia; F12.10 Cannabis abuse, uncomplicated; F41.9 Anxiety disorder, unspecified; F32.9 Major depressive disorder, single episode, unspecified; F17.210 Nicotine dependence, cigarettes, uncomplicated; E78.5 Hyperlipidemia, unspecified; E66.01 Morbid (severe) obesity due to excess calories; K21.9 Gastro-esophageal reflux disease without esophagitis; N18.9 Chronic kidney disease, unspecified; Z79.4 Long term (current) use of insulin
CPT/HCPCS: 36415; 36416; 80048; 80306; 82330; 82553; 82803; 83605; 83880; 84484; 85025; 85379; 85610; 85730; 87077; 87086; 87186; 93005; 94640; 94664; 94760; 96365; 96374; 96375; A4216; J0456; J0696; J1644; J1815; J1956; J2185; J2270; J3370; J3480; J7050; J7620

== ENCOUNTER 2018-04-08 05:54 | Day surgery (SDC) | payer MEDICARE, MEDICAID ==
[2018-04-07 10:20] VITALS: BMI 45.4
--- NOTE | 2018-04-08 09:31 | OP ---
DATE OF PROCEDURE: 04/08/2018 PROCEDURE: Esophagogastroduodenoscopy with esophageal dilation over a guidewire and colonoscopy with biopsy. PREOPERATIVE DIAGNOSES: Dysphagia, epigastric pain, and chronic diarrhea. OPERATIVE NOTE: Informed consent was obtained from the patient. She was sedated with total intraven ous anesthesia. The bite block was placed and the endoscope was advanced easily to the second portio n of the duodenum and retroflexion was performed in the stomach. The esophagus was normal. The GE j unction and Z-line were normal. The esophagus was dilated empirically with an 18-mm Savary dilator o lc a guidewire. Second look endoscopy showed no change following the dilation. The stomach was nor mal including retroflexed views. The pylorus and first and second portions of the duodenum were norm al. The patient was turned around. Rectal exam was performed and was normal. The colonoscope was a dvanced to the terminal ileum without difficulty. The mucosa of the terminal ileum was normal. The ileocecal valve and appendiceal orifice were clearly identified. The preparation quality was fair af ter extensive irrigation and suctioning. The colonic mucosa was normal throughout. Retroflexed view s in the rectum were normal. IMPRESSION: 1. Normal esophagogastroduodenoscopy. The esophagus was dilated to 18 mm with a Savary dilator over a guidewire with no change on second look. 2. Normal colonoscopy to the terminal ileum, with fair bowel prep. 3. Random colon biopsies were taken to rule out microscopic colitis. RECOMMENDATIONS: 1. Await histopathology. 2. Repeat colonoscopy in 5 years due to the fair prep for colon cancer screening. 3. Follow up in GI clinic.
[2018-04-08] MEDS ORDERED: Lidocaine 1% PF 5 ML VIAL ONE (11:54)
[2018-04-08] MEDS ORDERED: PROPOFOL 200 MG/20 ML VIAL ONE (11:54)
== END 2018-04-08 09:30 | disposition home or self-care (01) ==
LOC: SDC 05:54
PROVIDERS: ATTEND Internal Medicine Gastroenterology
PROC: 0DBE8ZX Excision of Large Intestine, Via Natural or Artificial Opening Endoscopic, Diagnostic (ICD-10-PCS; principal; 2018-04-08)
PROC: 0DJ08ZZ Inspection of Upper Intestinal Tract, Via Natural or Artificial Opening Endoscopic (ICD-10-PCS; 2018-04-08)
DX: K52.9 Noninfective gastroenteritis and colitis, unspecified (principal); R13.10 Dysphagia, unspecified; R10.13 Epigastric pain; R10.33 Periumbilical pain; I50.9 Heart failure, unspecified; E11.9 Type 2 diabetes mellitus without complications; Z87.19 Personal history of other diseases of the digestive system; Z88.5 Allergy status to narcotic agent; Z88.8 Allergy status to other drugs, medicaments and biological substances; Z79.82 Long term (current) use of aspirin; Z79.84 Long term (current) use of oral hypoglycemic drugs; Z79.899 Other long term (current) drug therapy
CPT/HCPCS: 36416; 88305; J2001; J2704

== ENCOUNTER 2020-05-24 11:02 | Outpatient (CLI) | payer OTHER, MEDICARE ==
--- NOTE | 2020-05-24 11:51 | RAD ---
CERVICAL SPINE 2 VIEWS: HISTORY: Neck pain. COMPARISON: Comparison is made to cervical spine films of 01/02/2018. FINDINGS: Mild anterior wedging of the C5 vertebrae with anterior osteophytes at C4-5 and C5-6. Similar anteri or wedging was seen in 2018. Posterior height and alignment is preserved throughout the cervical spine. Mild loss of disk space a t C5-6. The other disk spaces are preserved. Posterior elements appear normally aligned with mild f acet hypertrophy. IMPRESSION: Mild anterior wedging of C5 with anterior hypertrophic changes at C4-5 and C5-6 suggests old injury w ith degenerative change. POS: AH
== END 2020-05-24 11:03 | disposition home or self-care (01) ==
LOC: SCSRAD 11:02
PROVIDERS: ATTEND Psychiatry & Neurology Neurology
DX: M54.2 Cervicalgia (principal); M48.52XA Collapsed vertebra, not elsewhere classified, cervical region, initial encounter for fracture
CPT/HCPCS: 72040